=== PATIENT | female | born 1945 | race Caucasian/White ===

== ENCOUNTER 2021-08-23 16:44 | Emergency (ER) | payer OTHER ==
[2021-08-23] MEDS ORDERED: HYDROCODON-ACE1 EAC4 PO (20:30)
== END 2021-08-23 20:42 | disposition home or self-care (01) ==
LOC: ER1 16:44
DX: S32.029A Unspecified fracture of second lumbar vertebra, initial encounter for closed fracture (principal); M51.35 Other intervertebral disc degeneration, thoracolumbar region; I10 Essential (primary) hypertension; Y30.XXXA Falling, jumping or pushed from a high place, undetermined intent, initial encounter
CPT/HCPCS: 72131; 93005; 96374; 96375; 99284; J1885; J2270; J2405